=== PATIENT | female | born 1955 | race African-American/Black ===

== ENCOUNTER 2021-10-06 08:35 | Outpatient (CLI) | payer MEDICARE | END 2021-10-06 08:36 | disposition home or self-care (01) | LOC: BICMAMMO 08:35 | PROVIDERS: ATTEND Family Medicine | DX: Z12.31 Encounter for screening mammogram for malignant neoplasm of breast (principal) | CPT/HCPCS: 77063; 77067 ==

== ENCOUNTER 2023-10-29 09:44 | Outpatient (CLI) | payer MEDICARE | END 2023-10-29 09:45 | disposition home or self-care (01) | LOC: BICMAMMO 09:44 | PROVIDERS: ATTEND Student in an Organized Health Care Education/Training Program | DX: Z12.31 Encounter for screening mammogram for malignant neoplasm of breast (principal) | CPT/HCPCS: 77063; 77067 ==